=== PATIENT | male | born 1990 ===

== ENCOUNTER 2018-04-20 04:07 | Emergency (ER) | payer SELFPAY ==
[2018-04-20 04:14] VITALS: BMI 21.6
--- NOTE | 2018-04-20 04:28 | ED PDOC ---
Arrival/HPI - General Chief Complaint: Alcohol Ingestion Time Seen by Provider: 04/20/18 04:22 Historian: EMS, Police - History of Present Illness Narrative History of Present Illness (Text): 04/20/18 04:20 Mark Juarez is a 27 year old male who presents to the Emergency department brought in by EMS and [facility] for alcohol intoxication tonight. As per EMS, patient was found walking around outside inebriated with his daughter. Patient tripped and fell, sustaining an abrasion to his left forehead/cheek. Limited HPI and ROS secondary to patient's intoxication. Time/Duration: Prior to Arrival Symptom Course: Unchanged Context: Walking, Street Past Medical History - Provider Review Nursing Documentation Reviewed: Yes - Psychiatric Hx Substance Use: No - Anesthesia Hx Anesthesia: No Family/Social History - Physician Review Nursing Documentation Reviewed: Yes Family/Social History: Unknown Family HX Smoking Status: Unknown If Ever Smoked Hx Alcohol Use: No Hx Substance Use: No Allergies/Home Meds Allergies/Adverse Reactions: Allergies No Known Allergies Allergy (Verified 04/20/18 07:59) Home Medications: Home Meds Medication Instructions Recorded Confirmed No Known Home Med 04/20/18 04/20/18 Review of Systems - Review of Systems Systems not reviewed;Unavailable: Intoxicated Physical Exam Vital Signs Reviewed: Yes Vital Signs Temp Pulse Resp BP Pulse Ox 04/20/18 11:35 98 F 75 19 124/52 L 99 04/20/18 11:00 98 F 89 19 123/55 L 99 04/20/18 07:42 98 F 78 19 110/47 L 98 04/20/18 05:57 88 18 118/69 97 04/20/18 04:12 97.7 F 93 H 18 127/65 95 Temperature: Afebrile Blood Pressure: Normal Pulse: Regular Respiratory Rate: Normal Appearance: Positive for: Well-Appearing Pain Distress: None Mental Status: Positive for: other (intoxicated) Finger Stick Blood Glucose: 101 - Systems Exam Head: Present: Normocephalic, Abrasion (Abrasions to left forehead and left cheek) Pupils: Present: PERRL Extroacular Muscles: Present: EOMI Conjunctiva: Present: Normal Mouth: Present: Moist Mucous Membranes Neck: Present: Normal Range of Motion Respiratory/Chest: Present: Clear to Auscultation, Good Air Exchange. No: Respiratory Distress, Accessory Muscle Use Cardiovascular: Present: Regular Rate and Rhythm, Normal S1, S2. No: Murmurs Abdomen: No: Tenderness, Distention, Peritoneal Signs Upper Extremity: Present: Normal Inspection. No: Cyanosis, Edema Lower Extremity: Present: Normal Inspection. No: Edema Neurological: Present: GCS=15, CN II-XII Intact Skin: Present: Warm, Dry, Normal Color. No: Rashes Psychiatric: Present: Intoxicated Medical Decision Making ED Course and Treatment: 04/20/18 04:20 Impression: 27 year old male brought in for alcohol intoxication s/p mechanical fall outside with daughter. Plan: -- CT Head w/o contrast -- Reassess and disposition Progress Notes: 04/20/18 05:14 CT Head shows: Brain: Unremarkable. No hemorrhage. No significant white matter disease. No edema. Ventricles: Unremarkable. No ventriculomegaly. Bones/joints: Unremarkable. No acute fracture. Soft tissues: Unremarkable. Sinuses: Unremarkable as visualized. No acute sinusitis. Mastoid air cells: Unremarkable as visualized. No mastoid effusion. Other findings: Divergent gaze incidentally noted IMPRESSION: No acute findings. 04/20/18 05:52 Left forehead/cheek abrasions irrigated thoroughly with normal saline, covered in Bacitracin and dressed with clean, dry, sterile dressing. Pt tolerated well with no complaints. - Lab Interpretations Lab Results: Lab Results 04/20/18 08:15: Urine Opiates Screen Negative, Urine Methadone Screen Negative, Ur Barbiturates Screen Negative, Ur Phencyclidine Scrn Negative, Ur Amphetamines Screen Negative, U Benzodiazepines Scrn Negative, U Oth Cocaine Metabols Negative, U Cannabinoids Screen Negative 04/20/18 07:38: POC Glucose (mg/dL) 83 04/20/18 07:00: Alcohol, Quantitative 406 H* - RAD Interpretation Radiology Orders: 04/20/18 04:22 HEAD W/O CONTRAST [CT] Stat Communications Planner: Radiologist - Transfer of Care Patient signed out to Dr:: imm sobriety and re-eval - Scribe Statement The provider has reviewed the documentation as recorded by the Scribe Hortensia Geller Provider Scribe Attestation: All medical record entries made by the Scribe were at my direction and personally dictated by me. I have reviewed the chart and agree that the record accurately reflects my personal performance of the history, physical exam, medical decision making, and the department course for this patient. I have also personally directed, reviewed, and agree with the discharge instructions and disposition. Disposition/Present on Arrival - Present on Arrival Any Indicators Present on Arrival: No History of DVT/PE: No History of Uncontrolled Diabetes: No Urinary Catheter: No History of Decub. Ulcer: No History Surgical Site Infection Following: None - Disposition Have Diagnosis and Disposition been Completed?: Yes Diagnosis: Alcohol intoxication Disposition: HOME/ ROUTINE Disposition Time: 05:55 Condition: STABLE Discharge Instructions (ExitCare): Alcohol Abuse and Alcoholism (DC) Forms: [employer] (Upper Sorbian)
[2018-04-20 07:44] VITALS: RESP 19; TEMP 98
--- NOTE | 2018-04-20 08:57 | CT ---
PROCEDURE: CT HEAD WITHOUT CONTRAST. HISTORY: fall COMPARISON: None available. TECHNIQUE: Axial computed tomography images were obtained through the head/brain without intravenous contrast. Coronal and sagittal reconstructed images. Radiation dose: Total exam DLP = 979.59 mGy-cm. This CT exam was performed using one or more of the following dose reduction techniques: Automated exposure control, adjustment of the mA and/or kV according to patient size, and/or use of iterative reconstruction technique. FINDINGS: HEMORRHAGE: No intracranial hemorrhage. BRAIN: No mass effect or edema. No atrophy or chronic microvascular ischemic changes. VENTRICLES: Unremarkable. No hydrocephalus. CALVARIUM: Unremarkable. PARANASAL SINUSES: Unremarkable as visualized. No significant inflammatory changes. MASTOID AIR CELLS: Unremarkable as visualized. No inflammatory changes. OTHER FINDINGS: None. IMPRESSION: No acute intracranial abnormalities. No significant findings to account for the clinical presentation. Concordant results (preliminary interpretation) provided by [facility] [employer]. Procedure Completed: 04:43 Preliminary ([facility]) Report: Dictated and Authenticated: 05:08 Final Interpretation: 08:56
[2018-04-20 09:34] LABS: BARBITURATES, UR NEGATIVE (NEGATIVE); BENZODIAZEPINES, UR NEGATIVE (NEGATIVE); OPIATES, UR NEGATIVE (NEGATIVE); PHENCYCLIDINE, UR NEGATIVE (NEGATIVE)
--- NOTE | 2018-04-20 11:09 | ED PDOC ---
Physical Exam - Physical Exam Narrative Physical Exam (Text): Patient signed out to me pending sobriety. Patient was intoxicated, with daughter. DYFS called, evaluated patient and daughter. Daughter was discharged home hours ago. Patient pending sobriety. At 11am, patient awake, alert, steady gait, with family to take patient home. Vital Signs Temp Pulse Resp BP Pulse Ox 04/20/18 07:42 98 F 78 19 110/47 L 98 04/20/18 05:57 88 18 118/69 97 04/20/18 04:12 97.7 F 93 H 18 127/65 95 Finger Stick Blood Glucose: 83 Medical Decision Making - Lab Interpretations Lab Results: Lab Results 04/20/18 08:15: Urine Opiates Screen Negative, Urine Methadone Screen Negative, Ur Barbiturates Screen Negative, Ur Phencyclidine Scrn Negative, Ur Amphetamines Screen Negative, U Benzodiazepines Scrn Negative, U Oth Cocaine Metabols Negative, U Cannabinoids Screen Negative 04/20/18 07:38: POC Glucose (mg/dL) 83 04/20/18 07:00: Alcohol, Quantitative 406 H* - RAD Interpretation Radiology Orders: 04/20/18 04:22 HEAD W/O CONTRAST [CT] Stat Disposition/Present on Arrival - Present on Arrival Any Indicators Present on Arrival: No History of DVT/PE: No History of Uncontrolled Diabetes: No Urinary Catheter: No History of Decub. Ulcer: No History Surgical Site Infection Following: None - Disposition Have Diagnosis and Disposition been Completed?: Yes Diagnosis: Alcohol intoxication Disposition: HOME/ ROUTINE Disposition Time: 11:09 Patient Plan: Discharge Condition: STABLE Discharge Instructions (ExitCare): Alcohol Abuse and Alcoholism (DC) Forms: [employer] (Czech)
[2018-04-20 11:14] VITALS: O2SAT 99
[2018-04-20 11:37] VITALS: BP 124/52; PULSE 75
== END 2018-04-20 11:35 | disposition home or self-care (01) ==
LOC: ED 04:07
DX: F10.129 Alcohol abuse with intoxication, unspecified (principal)
CPT/HCPCS: 70450; 82948; 99284; G0480